=== PATIENT | female | born 1955 | race Caucasian/White ===

== ENCOUNTER 2016-12-30 12:10 | Day surgery (SDC) | payer MEDICAID ==
[2016-12-30] MEDS ORDERED: Sodium Chloride 0.9% 10 ML Syringe FLUSH PRN (12:45)
[2016-12-30] MEDS ORDERED: ceFAZolin 2 GM in Premix Bag 1 BAG IV ONE (13:45)
[2016-12-30] MEDS: Lactated Ringers 1,000 ML IV SCH ×2 (13:53→18:00)
[2016-12-30] MEDS ORDERED: Midazolam 1 MG/ML 2 ML SDV IV ONE (14:00)
[2016-12-30] MEDS ORDERED: hydrALAZINE 20 MG/ML SDV IV ONE (14:00)
[2016-12-30] MEDS ORDERED: Ondansetron 4 MG/2 ML SDV IVPUSH ONE (14:00)
[2016-12-30] MEDS ORDERED: Propofol 200 MG/20 ML SDV IV ONE (14:00)
[2016-12-30] MEDS ORDERED: Neostigmine Methylsulfate 1 MG/ML 5 ML Syringe IV ONE (14:00)
[2016-12-30] MEDS ORDERED: HYDROmorphone 2 MG/ML SDV IV ONE (14:00)
[2016-12-30] MEDS ORDERED: Rocuronium 50 MG/5 ML Vial IV ONE (14:00)
[2016-12-30] MEDS ORDERED: Dexamethasone 4 MG/ML 5 ML MDV IVPUSH ONE (14:00)
[2016-12-30] MEDS ORDERED: Lidocaine 2% 100 MG/5 ML Syringe IVPUSH ONE (14:00)
[2016-12-30] MEDS ORDERED: Succinylcholine/Normal Saline 200 MG/10 ML Syringe IV ONE (14:00)
[2016-12-30] MEDS ORDERED: Lactated Ringers 1,000 ML IV ONE (14:00)
[2016-12-30] MEDS ORDERED: Ketamine 500 mg/10 ML MDV IV ONE (14:00)
--- NOTE | 2016-12-30 14:13 | PCM.PN ---
- General Info Date of Service: 12/30/16 - Review of Systems Systems Review Comment:: 61 y/o female with cholelithiasis and worsening episodes of biliary colic here for cholecystetomy. She is stable with no significant change from yesterday. Questions answered and she agrees to proceed. - Patient Data Vitals - most recent: Last Vital Signs Temp 97.7 F 12/30/16 13:46 Pulse 75 12/30/16 13:46 Resp 18 12/30/16 13:46 BP 130/72 12/30/16 13:46 Pulse Ox 96 12/30/16 13:46 Weight - most recent: 182 lb Med Orders - Current: Current Medications Lactated Ringer's (Ringers, Lactated) 1,000 mls @ 125 mls/hr IV ASDIRECTED JENNY Last Admin: 12/30/16 13:53 Dose: 125 mls/hr Cefazolin Sodium/Dextrose 2 gm (/ Premix) 50 mls @ 100 mls/hr IV ONETIME ONE Stop: 12/30/16 14:14 Last Admin: 12/30/16 13:54 Dose: 100 mls/hr Sodium Chloride (Saline Flush) 10 ml FLUSH ASDIRECTED PRN PRN Reason: Keep Vein Open - Problem List Review Problem List Initiated/Reviewed/Updated: Yes - My Orders Last 24 Hours: My Active Orders 12/29/16 15:21 Resuscitation Status Routine 12/30/16 12:45 Patient Status [ADT] Routine Antiembolic Devices [RC] .Routine Patient to Empty Bladder [RC] ASDIRECTED VTE/DVT Education [RC] Click To Edit Verify Patient Consent Obtain [RC] ASDIRECTED Lactated Ringers [Ringers, Lactated] 1,000 ml IV ASDIRECTED Sodium Chloride 0.9% [Saline Flush] 10 ml FLUSH ASDIRECTED PRN DVT/VTE Prophylaxis Reflex [OM.PC] Routine Peripheral IV Insertion Adult [OM.PC] Routine Sequential Compression Device [OM.PC] Routine 12/30/16 13:45 ceFAZolin [Ancef] 2 gm Premix Bag 1 bag IV ONETIME - Assessment Assessment:: Cholelithiasis with biliary colic - Plan Plan:: Cholecystectomy
[2016-12-30] MEDS ORDERED: Bupivacaine 0.5%/EPINEPHrine 1:200,000 50 ML MDV INJECT ONE (14:30)
--- NOTE | 2016-12-30 16:10 | PCM.OPNOTE ---
- General Post-Op/Procedure Note Date of Surgery/Procedure: 12/30/16 Operative Procedure(s): Laparoscopic Cholecystectomy Findings: Chronically inflamed gallbladder with stones Pre Op Diagnosis: Symptomatic Cholelithiasis Post-Op Diagnosis: Same Anesthesia Technique: General ET tube Primary Surgeon: Wally Orantes Pathology: Gallbladder with stones EBL in mLs: 30 Complications: None Condition: Good
[2016-12-30 23:39] VITALS: BP 120/64
--- NOTE | 2017-01-02 08:58 | OR ---
DATE OF OPERATION: 12/30/2016 SURGEON: Wally Orantes MD REFERRING PROVIDER: Soraida Castillo PA-C PREOPERATIVE DIAGNOSIS: Symptomatic cholelithiasis with biliary colic. POSTOPERATIVE DIAGNOSIS: Symptomatic cholelithiasis with biliary colic. OPERATION PERFORMED: Laparoscopic cholecystectomy. INDICATIONS FOR SURGERY: This 61-year-old female has been having symptoms of intermittent right back and abdominal pain as well as nausea and bloating. Workup has identified cholelithiasis, which is felt to be the source of her symptoms and she comes for cholecystectomy. FINDINGS: The patient's gallbladder shows evidence of chronic inflammation. There are adhesions to its undersurface as well as to the undersurface of the adjacent liver. The gallbladder did show some chronic inflammation as well and does contain stones. No other intraabdominal abnormalities were seen, although, the patient has had previous pelvic surgery. PROCEDURE IN DETAIL: The patient was taken to the operating room. She was given general endotracheal anesthesia and the abdomen was sterilely prepped and draped. A supraumbilical stab wound incision was made. Through this, a Veress needle was inserted and pneumoperitoneum via this needle to a pressure of 15 mmHg was achieved with carbon dioxide. The Veress needle was then replaced with a 12-mm trocar into which the 5-mm variable angled laparoscopic camera was inserted. Under direct visualization, 5-mm trocars were placed in the subxiphoid midline and in 2 areas of the right abdomen, all trocar sites were infiltrated with Marcaine prior to incision. Intra-abdominal inspection was carried out and attention was turned to the gallbladder. Adhesions to the undersurface of the gallbladder as well as to the adjacent liver are carefully taken down using cautery and sharp dissection. Once the lower portion of the gallbladder had been exposed, some thin adhesions of the gallbladder to the duodenum are sharply taken down to allow full exposure of the gallbladder. The gallbladder was secured with grasping forceps placed through the lateral trocars and retracted superiorly and anteriorly. The peritoneum and fatty tissue overlying the cystic duct was carefully cleared and the cystic artery was also exposed. In order to get a safe control of the cystic artery, the gallbladder had to be adequately mobilized, so once the cystic duct had been clearly and positively identified, it was doubly clipped and divided near the gallbladder with great care being used to avoid any injury to the common bile duct. This additional space then allowed continued careful dissection around the cystic artery until it could be isolated and then it too was doubly clipped and divided adjacent to the gallbladder. The gallbladder was then dissected free from the undersurface of the liver using the hook cautery device. This was somewhat difficult because of the chronic inflammation, but eventually the gallbladder was able to be completely freed from the liver and it was extracted through the largest trocar site. This did require opening the gallbladder extra-abdominally and removing the stones and then the gallbladder could be removed. Reinspection of the gallbladder bed was performed along with copious irrigation of this region. Some bleeding sites on the gallbladder bed are controlled with the use of cautery. Once good hemostasis had been achieved and full irrigation of this area had been carried out. The gallbladder bed was reinforced with a piece of Surgicel to reduce any risk of postoperative bleeding. No sign of complicating process. The trocars were then removed under direct visualization, and the pneumoperitoneum was evacuated. The fascia of the umbilical trocar site was closed with a [id number] 0 Vicryl suture. Wounds were irrigated with Betadine and saline solution. Skin incisions were approximated with interrupted 4-0 Vicryl in a subcuticular stitch, Steri-Strips and Benzoin. Antibiotic ointment and sterile dressings were placed. The patient was then awakened, extubated, and taken from the operating room in satisfactory condition. ESTIMATED BLOOD LOSS: 30 mL. COMPLICATIONS: None. PROGNOSIS: Good. /[id number] HANNAH/IRENA CC: Soraida Castillo PA-C ([facility]) JEAN
== END 2016-12-30 20:35 | disposition home or self-care (01) ==
LOC: FB.SDS 12:10 → FB.MS 17:18 → FB.SDS 20:35
PROVIDERS: ATTEND Surgery
DX: K80.20 Calculus of gallbladder without cholecystitis without obstruction (principal); I10 Essential (primary) hypertension; Z88.8 Allergy status to other drugs, medicaments and biological substances; Z91.041 Radiographic dye allergy status; Z79.899 Other long term (current) drug therapy
CPT/HCPCS: 47562; 88304; J0360; J0690; J1100; J1170; J2250; J2405; J2704; J7120